=== PATIENT | male | born 1965 | race Caucasian/White ===

== ENCOUNTER 2018-05-04 20:02 | Emergency (ER) | payer OTHER ==
[~2018-05-04] VITALS: Ht 165.1 cm; Wt 83.0 kg
[~2018-05-04 20:02] MED LIST: GLYB5TAB9 PO; IBUP-974 PO; METF500T PO; METH500T14 PO; MIC5 PO; NAPR-54 PO; SITA100T8 PO
[2018-05-04 20:05] VITALS: BP 155/90
--- NOTE | 2018-05-04 20:15 | NUR ---
PT TO ER BED 7
--- NOTE | 2018-05-04 20:26 | NUR ---
PATIENT TAKEN TO CT WITH MYRIAM VIA DESTINEYRLUMA.
--- NOTE | 2018-05-04 20:36 | NUR ---
PATIENT RETURN FROM CT.
--- NOTE | 2018-05-04 20:40 | NUR ---
PT BIB C/O HEADACHE AND DIZZINESS. PT STATES SUDDEN ONSET OF DIZZINESS ON MONDAY; HEADACHE 09/15 PRESSURE, PAIN STARTED YESTERDAY, PT STATES PAIN IS TO LEFT AND RIGHT LOBE. DENIES TRAUMA, N/V/D CP OR SOB. PT HAS NOTED SHAKING TO LEFT AND RIGHT HANDS, PT STATES IT NORMAL FROM PREVIOUS SURGERIES ON HIS ELBOWS. --CLEAR SPEECH. SMILE SYMMETRICAL. 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 +EYE TRACKING. BREATHING EQUAL AND UNLABORED, LUNG SOUNDS CLEAR. SKIN WARM DRY AND INTACT. PMH: DM RX: METFORMIN, GLIPIZIDE, LISINOPRIL (PT STATES HE DOES NOT HAVE HTN, THAT HE WAS PRESCRIBED LISINOPRIL TO PROTECT HIS KIDNEYS)
[2018-05-04] MEDS ORDERED: MECLIZINE 25 MG TAB PO ONE (21:30)
[2018-05-04] MEDS ORDERED: NACL 0.9% 1,000 ML IV ONE (22:40)
--- NOTE | 2018-05-04 22:50 | NUR ---
IV START: R AC 20G. FLUSHED WELL W/O RESISTANCE; NO REDNESS OR SWELLING NOTED. TRANSPARENT DRESSING APPLIED. PT TOLERATED WELL; PT STATES NO PAIN TO SIGHT.
--- NOTE | 2018-05-04 23:50 | NUR ---
Patient discharged with v/s stable. IV d/c, pressure and gauze dressing applied; bleeding controlled. Patient state is feeling better and pain has decreased. Written and verbal after care instructions given and explained. Patient alert, oriented and verbalized understanding of instructions. Ambulatory with steady gait. All questions addressed prior to discharge. ID band removed. Patient advised to follow up with PMD. Rx of Meclizine given. Patient educated on indication of medication including possible reaction and side effects. Opportunity to ask questions provided and answered.
== END 2018-05-04 23:50 | disposition home or self-care (01) ==
LOC: MED 20:02
DX: R42 Dizziness and giddiness (principal); E11.9 Type 2 diabetes mellitus without complications; I10 Essential (primary) hypertension; Z79.84 Long term (current) use of oral hypoglycemic drugs; Z79.899 Other long term (current) drug therapy; Z88.8 Allergy status to other drugs, medicaments and biological substances
CPT/HCPCS: 70450; 93005; 96360; 99284; J7030; J8597

== ENCOUNTER 2018-10-29 18:46 | Emergency (ER) | payer OTHER ==
[~2018-10-29] VITALS: Ht 165.1 cm; Wt 82.6 kg
[~2018-10-29 18:46] MED LIST changes: +METH-1681 PO; -METH500T14 PO
[2018-10-29 19:16] VITALS: BP 180/102
--- NOTE | 2018-10-29 21:13 | NUR ---
PT AMBULATED TO BED #12
--- NOTE | 2018-10-29 21:20 | NUR ---
PT CAME TO ER C/O DIZZINESS,HEADACHE AND NAUSEA SINCE NOON TODAY. PT HEADACHE IS ON RIGHT SIDE AND BACK OF HEAD. PAIN LEVEL 9/10, SHARP CONSTANT PAIN. PT STATES ROOM FEELS LIKE ITS SPINNING. PT DENIES VISION CHANGES. ALLERGIES: PIOGLITAZONE. MED HX: DM, HTN, SEIZURES AND CARPAL TUNNEL. SAFETY MEASURES IN PLACE. BED IN LOWEST POSITION, PADDED SIDE RAILS UP X2 AND HOB ELEVATED. WAITING FOR ERMD TO EVALUATE PT.
[2018-10-29] MEDS ORDERED: MECLIZINE 25 MG TAB PO STA (22:13)
[2018-10-29] MEDS ORDERED: ACETAMINOPHEN 325 MG TAB PO STA (22:13)
[2018-10-29] MEDS ORDERED: ACETAMINOPHEN EXTRA STRENGTH 500 MG TAB ONE (22:27)
[2018-10-30 00:26] VITALS: BP 127/88
--- NOTE | 2018-10-30 00:26 | NUR ---
DPatient discharged with v/s stable. Written and verbal after care instructions given and explained. Patient alert, oriented and verbalized understanding of instructions. Ambulatory with steady gait. All questions addressed prior to discharge. ID band removed. Patient advised to follow up with PMD. Rx of MECLIZINE given. Patient educated on indication of medication including possible reaction and side effects. Opportunity to ask questions provided and answered.
== END 2018-10-30 00:26 | disposition home or self-care (01) ==
LOC: MED 18:46
DX: H81.10 Benign paroxysmal vertigo, unspecified ear (principal); E11.9 Type 2 diabetes mellitus without complications; I10 Essential (primary) hypertension; Z79.84 Long term (current) use of oral hypoglycemic drugs; Z79.899 Other long term (current) drug therapy; Z88.8 Allergy status to other drugs, medicaments and biological substances
CPT/HCPCS: 99283; J8597